=== PATIENT | male | born 1950 | race Hispanic/Latino ===

== ENCOUNTER → 2018-07-08 | Day surgery (SDC) | payer MEDICARE ==
[2018-07-07 10:53] LABS: BASOPHILS # (AUTO) 0.1 (0.0-0.1); BASOPHILS % 0.5 % (0.0-1.0); EOSINOPHILS # (AUTO) 0.2 (0.0-0.4); HEMOGLOBIN 14.8 g/dL (14.0-18.0); LYMPHOCYTES # (AUTO) 2.3 (1.0-3.2); LYMPHOCYTES % 24.5 % (18.0-39.1); MEAN CORPUSCULAR HGB CONC 32.9 g/dL (31-35); MEAN CORPUSCULAR VOLUME 88.1 fL (81-99); MONOCYTES # (AUTO) 0.8 (0.2-0.8); MONOCYTES % 8.8 % (4.4-11.3); NEUTROPHILS # (AUTO) 5.9 (2.1-6.9); NEUTROPHILS % 63.3 % (38.7-80.0); PLATELET COUNT 235 x10e3/uL (140-360); RED BLOOD COUNT 5.11 x10e6/uL (4.3-5.7)
[2018-07-07 11:12] LABS: ANION GAP 15.9 mmol/L (8-16); BLOOD UREA NITROGEN 12 mg/dL (7-26); BUN/CREATININE RATIO 14 (6-25); CALCIUM 10.4 mg/dL (8.4-10.2); CARBON DIOXIDE 28 mmol/L (22-29); CHLORIDE 101 mmol/L (98-107); CREATININE, SERUM 0.84 mg/dL (0.72-1.25); EST GLOMERULAR FILTRATION RATE > 60 ML/MIN (60-); GLUCOSE 97 mg/dL (74-118); POTASSIUM 4.9 mmol/L (3.5-5.1); SODIUM 140 mmol/L (136-145)
--- NOTE | 2018-07-07 11:17 | Diagnostic Imaging Report ---
EXAMINATION: PA and lateral views of the chest. COMPARISON: 08/18/2010 CLINICAL HISTORY: Preop for excisional biopsy of cervical nodule DISCUSSION: The lungs are well-inflated. No focal airspace consolidation, pleural effusion, or pneumothorax. Cardiomediastinal contour and pulmonary vasculature are stable and within normal limits. No acute osseous abnormalities. Mild multilevel degenerative disc changes of the thoracic spine. IMPRESSION: No acute cardiopulmonary abnormalities. Signed by: Dr. Ryan Cochran M.D. on 07/07/2018 11:11 AM
--- NOTE | 2018-07-07 14:56 | Pre Op History & Physical ---
CHIEF COMPLAINT: Right thyroid nodule and right vocal fold paralysis. HISTORY OF PRESENT ILLNESS: This 68-year-old male had a history of hoarseness since May 2018. The patient came to see me regarding the problem in June of 2018. He denies any choking with dysphagia and odynophagia. Patient has no coughing. The patient has no trauma to the vocal fold. The patient has no weakness in his extremities. On examination during that visit, he was noted to have right vocal fold paralysis. Workup on his vocal fold paralysis involved a CT scan of the neck and a chest x-ray. Both showed that the patient has large right thyroid nodule and a 4.4-cm nodule on the right side of the thyroid. The patient denies any radiation to the head or neck area. He has no other thyroid function problem. REVIEW OF SYSTEMS: No recent cardiovascular, respiratory or GI problem. PAST MEDICAL HISTORY: Patient has history of hypertension and type-2 diabetes. PAST SURGICAL HISTORY: He has no previous surgery. ALLERGIES: HE HAS NO KNOWN ALLERGY TO MEDICATION. MEDICATIONS: He is on simvastatin, metformin, pioglitazone, Losartan, Naprosyn and pantoprazole. SOCIAL HISTORY: Nonsmoker, nondrinker. FAMILY HISTORY: Noncontributory. PHYSICAL EXAMINATION VITAL SIGNS: Within normal limits. EAR: Normal tympanic membranes bilaterally. NOSE: Deviated nasal septum to the right side about 20%. THROAT: Oropharynx and oral cavity showed 2+ tonsils bilaterally with Mallampati level 2. Nasal endoscopy showed the patient has mobile vocal fold on the left side and immobile vocal fold on the right in the paramedian position. No lesion in the hypopharynx was noted. CHEST: Decreased air entry bilaterally. CARDIOVASCULAR: S1 and S2. No murmur noted. 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 Mr. Marcial has right thyroid nodule and right vocal fold paralysis. The suggested treatment is right thyroidectomy, possible total thyroidectomy and other necessary procedure. The complications of the procedure include but not limited to bleeding, infection, perforation of esophagus, pneumomediastinum, mediastinitis, airway compromise, hoarseness, recurrent laryngeal nerve problem, airway compromise, hypocalcemia, hypercalcemia, persistence or recurrence of the problem. The alternative would be continued observation, needle aspiration of the thyroid nodule and thyroid suppression. The patient and his family have elected to undergo the surgical procedure. Job#: [id number] cc:KARLEE VELASCO MD
[~2018-07-08] MED LIST: ACETAMINOPHEN 1000 MG/100 ML 100 ML IV ONE; ACETAMINOPHEN 1000 MG/100 ML IV ONE; ASPIRIN81 MG PO; DEXAMETHASONE SOD PHOS INJ 4 MG/ML VIAL ONE; FENOFIBRATE PO; FENTANYL CITRATE/PF 100MCG/2 ML INJ ONE; KETOROLAC TROMETHAMINE 30 MG/ML VIAL ONE; LANSOPRAZOLE15 MG PO; LIDOCAINE 1% W/EPINEPHRINE 20 ML VIAL ONE; LOSARTAN POTAS100 MG PO; METFORMIN HCL500 M2 PO; METFORMIN HCL500 MG PO; MIDAZOLAM HCL 2 MG/2 ML VIAL ONE; NAPROXEN250 MG PO; ONDANSETRON HCL INJ 2 MG/ML VIAL ONE; PANTOPRAZOLE SO40 MG PO; PIOGLITAZONE HC45 MG PO; PROPOFOL IV EMULSION 10 MG/ML 20 ML VIAL ONE; ROCURONIUM BROMIDE 10 MG/ML 5ML VIAL ONE; SEVOFLURANE INHAL SOLN 250 ML PEN BTL ONE; SIMVASTATIN20 MG PO; SUCCINYLCHOLINE 200 MG/10 ML SYR ONE; VITAMIN B-12 PO; VITAMIN D35000 UNIT PO
--- NOTE | 2018-07-08 15:34 | Operative Report ---
DATE OF PROCEDURE: July 08, 2018 CHIEF COMPLAINT: Right thyroid mass and right vocal cord paralysis. POSTOPERATIVE DIAGNOSIS: Right thyroid mass and right vocal cord paralysis. TITLE OF PROCEDURE: Right neck exploration with excisional biopsy of thyroid mass. ELECTRICIAN MASTER: Manju Monroe. ANESTHESIA: [facility], Dr. Méndez. This 68-year-old male has a 1-month history of hoarseness. On examination in the office, he was noted to have right vocal fold paralysis. On further examination and workup on his vocal fold paralysis, patient was noted have a right thyroid mass on CT of the neck, which occupied the whole of his thyroid gland. The patient declined needle aspiration. It was decided that right thyroidectomy, possible total thyroidectomy, and other necessary procedure would be beneficial for him. Patient was taken to the operating room, put under general anesthesia, endotracheally intubated. An incision was marked out about 2 fingerbreadths from the sternal notch. The size of the incision was about 4 cm. The area was injected with 1% Xylocaine with 1:100,000 epinephrine for hemostasis. Dissection was carried down to the subplatysmal plane. The superior inferior flap was elevated. The strap muscle was identified and this was . The thyroid gland came into view. On palpation of the thyroid gland, it was very hard on palpation. Because of the appearance of the thyroid gland, it was decided that a piece of the thyroid gland would be sent for frozen section before further dissection of the thyroid gland on the right side would be undertaken. 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 With that diagnosis, it was decided that the further dissection of the thyroid gland would not be beneficial for the patient. Closure of the area was undertaken. The area was irrigated with copious amount of normal saline. Any bleeding area was controlled using the cautery. The strap muscle was advanced in the midline and closed with 1 suture of 3-0 Vicryl suture in a mattress fashion. The platysmal flap that was elevated was advanced in midline and closed on itself using interrupted 3-0 Vicryl suture in interrupted fashion. A skin incision was closed using 4-0 Prolene suture in interrupted fashion. A pressure dressing was applied. The patient tolerated the above procedure well with minimal blood loss. He was given 20 mg of Decadron intraoperatively. Patient was able to be transferred to recovery room in stable condition. Job#: [id number] [place]
[2018-07-08 16:30] VITALS: BP 140/78
== END | disposition home or self-care (01) ==
LOC: OR 10:37
PROVIDERS: ATTEND Otolaryngology Otolaryngology/Facial Plastic Surgery
DX: C73 Malignant neoplasm of thyroid gland (principal); J38.01 Paralysis of vocal cords and larynx, unilateral; I10 Essential (primary) hypertension; E11.9 Type 2 diabetes mellitus without complications; Z01.810 Encounter for preprocedural cardiovascular examination; Z01.812 Encounter for preprocedural laboratory examination; Z01.818 Encounter for other preprocedural examination; Z79.84 Long term (current) use of oral hypoglycemic drugs
CPT/HCPCS: 36415 ×2; 60699; 71046; 80048; 82948; 85025; 88172; 88173; 88331; 88342; 93005; J1100; J1885; J2250; J2405; 88305